=== PATIENT | female | born 1965 | race Caucasian/White ===

== ENCOUNTER 2018-08-06 18:08 | Inpatient (IN) | payer OTHER ==
[~2018-08-06] VITALS: Ht 165.1 cm; Wt 69.4 kg
[2018-08-15] MEDS ORDERED: SURFAK240 M1 PO (11:27)
[2018-08-15] MEDS ORDERED: PERCOCET 5-3251 EACH PO (11:27)
== END 2018-08-15 12:10 | disposition home or self-care (01) | DRG 743 ==
LOC: OB/GYN 08-13 07:00 → SURH 08-13 08:45 → O/R 08-13 08:45 → OB/GYN 08-13 12:00 → SURH 08-13 17:01
PROVIDERS: Obstetrics & Gynecology; Urology
PROC: 0UT20ZZ Resection of Bilateral Ovaries, Open Approach (ICD-10-PCS; 2018-08-13)
PROC: 0UT90ZZ Resection of Uterus, Open Approach (ICD-10-PCS; principal; 2018-08-13 07:00)
PROC: 0UT70ZZ Resection of Bilateral Fallopian Tubes, Open Approach (ICD-10-PCS; 2018-08-13 07:00)
DX: D25.1 Intramural leiomyoma of uterus (principal); D25.0 Submucous leiomyoma of uterus; D25.2 Subserosal leiomyoma of uterus; N72 Inflammatory disease of cervix uteri; N83.292 Other ovarian cyst, left side; N83.291 Other ovarian cyst, right side